=== PATIENT | male | born 1955 | race African-American/Black ===

== ENCOUNTER 2018-04-15 15:05 | Emergency (ER) | payer SELFPAY ==
[~2018-04-15] VITALS: Ht 172.7 cm; Wt 74.5 kg
[2018-04-15] MEDS ORDERED: VERAPAMIL HCL80 MG PO (19:06)
[2018-04-15] MEDS ORDERED: HYDROCHLOROTHIA25 MG PO (19:06)
[2018-04-15 21:03] VITALS: BP 209/126
== END 2018-04-15 21:05 | disposition home or self-care (01) ==
LOC: EME 15:05
DX: D17.21 Benign lipomatous neoplasm of skin and subcutaneous tissue of right arm (principal); I10 Essential (primary) hypertension; T50.2X6A Underdosing of carbonic-anhydrase inhibitors, benzothiadiazides and other diuretics, initial encounter; Z91.128 Patient's intentional underdosing of medication regimen for other reason; F12.90 Cannabis use, unspecified, uncomplicated; F17.210 Nicotine dependence, cigarettes, uncomplicated
CPT/HCPCS: 99281; 99284